=== PATIENT | male | born 1985 | race Caucasian/White ===

== ENCOUNTER 2023-02-16 22:49 | Emergency (ER) | payer MEDICAID ==
[~2023-02-16] VITALS: Ht 170.2 cm; Wt 90.7 kg
[2023-02-16 23:00] VITALS: BP 125/92; PULSE 84; RESP 17; TEMP 98.2; O2SAT 98
== END 2023-02-16 23:15 ==
LOC: MED 22:49
DX: Z02.89 Encounter for other administrative examinations (principal); M54.2 Cervicalgia; V89.2XXA Person injured in unspecified motor-vehicle accident, traffic, initial encounter; Y93.89 Activity, other specified; Y92.410 Unspecified street and highway as the place of occurrence of the external cause; Y99.8 Other external cause status
CPT/HCPCS: 99283